=== PATIENT | male | born 1980 | race Caucasian/White ===

== ENCOUNTER 2018-09-13 03:44 | Emergency (ER) | payer SELFPAY, OTHER ==
[2018-09-13] MEDS: FAMOTIDINE 20 MG TAB PO (05:18)
[2018-09-13] MEDS: ONDANSETRON (ODT) 4 MG TAB ODT (05:18)
[2018-09-13] MEDS: LIDOCAINE/MYLANTA 40 ML BTL PO (05:18)
== END 2018-09-13 06:05 | disposition home or self-care (01) ==
LOC: FTE 06:05
DX: T62.91XA Toxic effect of unspecified noxious substance eaten as food, accidental (unintentional), initial encounter (principal); K29.70 Gastritis, unspecified, without bleeding; Z85.841 Personal history of malignant neoplasm of brain; Z87.891 Personal history of nicotine dependence
CPT/HCPCS: 99283